=== PATIENT | female | born 1960 | race Hispanic/Latino ===

== ENCOUNTER 2018-04-29 15:27 | Outpatient (CLI) | payer OTHER ==
--- NOTE | 2018-05-02 11:39 | Mammography Report ---
BILATERAL DIGITAL SCREENING MAMMOGRAM with CAD: 04/29/18 15:27:00 CLINICAL: Routine screening. COMPARISON:09/24/15 FINDINGS: The breasts are heterogeneously dense, which may obscure small masses. No mass, architectural distortion or suspicious calcifications. IMPRESSION: No mammographic evidence of malignancy. BI-RADS CATEGORY: 1 - - Negative RECOMMENDATION: Routine mammographic screening in one year. COMMENT: Patient follow-up letters are generated by our [employer] application.
== END 2018-04-29 15:28 | disposition home or self-care (01) ==
LOC: SPVWC 15:27
PROVIDERS: ATTEND Obstetrics & Gynecology Gynecology
DX: Z12.31 Encounter for screening mammogram for malignant neoplasm of breast (principal)
CPT/HCPCS: 77067